=== PATIENT | male | born 1970 | race Caucasian/White ===

== ENCOUNTER 2018-02-22 03:44 | Emergency (ER) | payer OTHER, SELFPAY ==
[2018-02-22 03:45] VITALS: BP 195/94; PULSE 100; RESP 22; TEMP 36.8; O2SAT 99; BMI 22.9
--- NOTE | 2018-02-22 03:48 | ED.ARRPALP ---
HPI - Arrhythmia/Palpitations General Chief Complaint: Arrhythmia/Palpitations Stated Complaint: Chest pain Time Seen by Provider: 02/22/18 03:48 Source: patient Mode of arrival: ambulatory Limitations: no limitations History of Present Illness HPI narrative: 47-year-old male here for evaluation of palpitations. He states that for the past several days/week he has had occasional episodes of chest palpitations. He denies any chest pain or lightheadedness during symptoms. He states that his grandfather and father both early because of heart attacks and he was concerned about this. This evening he woke up. Drinks several cups of coffee. He is watching TV. States that he felt like his heart was beating fast and skipping beats. 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 The time of my evaluation he reports a vast improvement all of his symptoms. Related Data Home Medications Medication Instructions Recorded Confirmed hydrocodone 10 mg-acetaminophen 1 tab PO .COMPLEX PRN 11/14/17 11/14/17 325 mg tablet morphine ER 30 mg capsule,extended 30 mg PO BID cap 11/14/17 11/14/17 release 24 hr multiphase Allergies Allergy/AdvReac Type Severity Reaction Status Date / Time No Known Drug Allergies Allergy Verified 11/14/17 09:25 Review of Systems Constitutional Denies fever(s) Cardiovascular Denies chest pain, Denies diaphoresis, Reports rapid heart rate, Denies lightheadedness, Reports palpitations and Denies dyspnea Respiratory Denies cough and Denies dyspnea Gastrointestinal Gastrointestinal: Denies abdominal pain Musculoskeletal Denies myalgias and Denies arthralgias Integumentary/Breasts Denies rash Endocrine Reports palpitations Hematologic/Lymphatic Comments: Not on anticoagulation [facility] Social History Smoking Status: Current every day smoker alcohol intake: never Exam Initial Vital Signs Initial Vital Signs: Vital Signs Temperature 98.2 F 02/22/18 03:45 Pulse Rate 100 H 02/22/18 03:45 Respiratory Rate 22 02/22/18 03:45 Blood Pressure 195/94 H 02/22/18 03:45 Pulse Oximetry 99 02/22/18 03:45 Const General: cooperative, comfortable, well developed, well groomed and No acute distress Orientation: alert, awake and oriented x3 HENMT Head: normal to inspection and normocephalic Chest Chest: normal inspection of the chest Resp Effort & Inspection: normal respiratory effort Auscultation: clear to auscultation bilaterally Cardio Rate: regular rate Rhythm: regular rhythm Pulses: radial pulses present GI Inspection: non-distended Palpation: soft and No firm Skin Lesions: no lesions Rashes: no rashes Neuro General: alert, awake and oriented x3 Cognition: normal cognition Speech: speech normal Gait: normal gait Extrem General: normal to inspection, full ROM and capillary refill normal Psych Appearance: grossly normal and well kempt Course Orders Ordered: ED Orders 02/22/18 EKG-12 Lead Stat 02/22/18 03:40 Basic Metabolic Panel Stat Complete Blood Count AUTO DIFF Stat Troponin I Stat 02/22/18 03:57 XR chest 1V Stat Vital Signs - 8 hr 02/22/18 03:45 02/22/18 04:21 02/22/18 04:46 Temperature 98.2 F Pulse Rate 100 H 76 72 Respiratory Rate 22 20 18 Blood Pressure 195/94 H Blood Pressure [Right Arm] 140/90 138/84 Pulse Oximetry 99 98 99 MDM - Arrhythmia/Palpitations Lab Data Attestation: I reviewed the patient's lab results. Result diagrams: 02/22/18 03:40 02/22/18 03:40 Lab Results 02/22/18 02/22/18 Range/Units 03:40 03:40 WBC 11.6 H (4.5-11.0) X10^3/uL RBC 4.41 L (4.5-5.9) X10^6/uL Hgb 15.1 (13.5-17.5) g/dL Hct 43.0 (41-53) % MCV 97.5 (80-100) fL MCH 34.2 H (26-34) PG MCHC 35.1 (30-36) % RDW 14.7 (11.6-14.8) % Plt Count 398 (150-400) X10^3/uL Neut % (Auto) 58.9 (50-75) % Lymph % (Auto) 29.8 (25-40) % [place] % (Auto) 8.7 (3-14) % Eos % (Auto) 1.6 L (2-4) % Baso % (Auto) 1.0 (0-2) % Neut # (Auto) 6800 H (6361-3611) /uL Sodium 140 (137-145) mmol/L Potassium 4.0 (3.4-5.1) mmol/L Chloride 103 (98-107) mmol/L Carbon Dioxide 26 (22-32) mmol/L BUN 8 L (9-20) mg/dL Creatinine 0.80 (0.66-1.25) mg/dL Estimated GFR > 60.0 (>60) mL/min BUN/Creatinine Ratio 10.0 (6-22) Glucose 121 H (70-100) mg/dL Calcium 9.0 (8.4-10.2) mg/dL Troponin I < 0.012 (0.01-0.034) ng/mL Imaging Data Chest x-ray: Attestation: I personally reviewed and interpreted this imaging study as follows: My impression: No focal consolidation Normal size heart No pneumothorax ECG Data Attestation: I personally reviewed and interpreted this ECG as follows: Prior ECG tracings: not available for review Interpretation: Sinus rhythm Ventricular rate is 79 Normal QRS Normal QTC Normal axis No ST T wave changes MDM Narrative Medical decision making narrative: Asymptomatic in the emergency department. His blood pressure did improve during his stay. EKG is unremarkable. Does not level prolonged QT. Labs unremarkable. Chest x-ray is unremarkable. Was sinus rhythm during his entire stay here in the ER on the monitor. We did discuss all this. He does not have any alarming factors to include chest pain or lightheadedness when his symptoms are occurring. I do suspect that his smoking and what seems to be excessive caffeine use could potentially be causing some of his symptoms. We did discuss the importance of quitting smoking. We did discuss that he should contact his primary doctor to discuss the indications for a referral to get a Holter monitor. We discussed return precautions. He expressed understanding and agreement plan Discharge Plan Departure Patient Disposition: Home Clinical Impression: Palpitations Instructions: DI for Palpitations Activity Restrictions/Additional Instructions: I do recommend you contact your primary doctor to discuss the indications for a Holter monitor. You can return to the emergency department any time for new or worsening symptoms and I encourage you to return if her symptoms ever occur with chest pain or lightheadedness or passing out. I do recommend that you cut back on the amount of caffeine that your drinking I also recommend that you consider quitting smoking. Prescriptions: No Action morphine 30 mg capsule, ER multiphase 24 hr 30 mg PO BID RF: 0 hydrocodone-acetaminophen 10-325 mg tablet 1 tab PO .COMPLEX PRNRF: 0
--- NOTE | 2018-02-22 03:57 | DI.RAD.S_ITS ---
PROCEDURE: XR CHEST 1V INDICATIONS: Palpitations TECHNIQUE: One view of the chest was acquired. COMPARISON: None. FINDINGS: Surgical changes and devices: None. Lungs and pleura: No pleural effusions or pneumothorax. Lungs are clear. Mediastinum: Mediastinal contours appear normal. Heart size is normal. Bones and chest wall: No suspicious bony lesions. Overlying soft tissues appear unremarkable. IMPRESSION: No acute disease. Dictated by: Gibson Snyder M.D. on 02/22/2018 at 8:11 Approved by: Gibson Snyder M.D. on 02/22/2018 at 8:11
[2018-02-22 04:04] LABS: Add Manual Diff / Slide Review NO; Eosinophils Percent Auto 1.6 % (2-4); Hemoglobin 15.1 g/dL (13.5-17.5); Lymphocytes Percent Auto 29.8 % (25-40); Mean Corpuscular HGB Conc 35.1 % (30-36); Mean Corpuscular Hemoglobin 34.2 PG (26-34); Mean Corpuscular Volume 97.5 fL (80-100); Monocytes Percent Auto 8.7 % (3-14); Neutrophils Absolute Auto 6800 /uL (3000-5900); Neutrophils Percent Auto 58.9 % (50-75); Platelet Count 398 X10^3/uL (150-400); Red Blood Cell Count 4.41 X10^6/uL (4.5-5.9); Red Cell Distribution Width 14.7 % (11.6-14.8); White Blood Cell Count 11.6 X10^3/uL (4.5-11.0)
[2018-02-22 04:11] LABS: Blood Urea Nitrogen 8 mg/dL (9-20); Carbon Dioxide 26 mmol/L (22-32); Chloride 103 mmol/L (98-107); Estimated Glomerular Filt Rate > 60.0 mL/min (>60); Glucose 121 mg/dL (70-100); HEMOLYSIS < 15 (0-50); Sodium 140 mmol/L (137-145)
[2018-02-22 04:21] VITALS: BP 140/90; PULSE 76; RESP 20; O2SAT 98
[2018-02-22 04:24] LABS: Troponin I < 0.012 ng/mL (0.01-0.034)
[2018-02-22 04:46] VITALS: BP 138/84; PULSE 72; RESP 18; O2SAT 99
== END 2018-02-22 05:13 | disposition home or self-care (01) ==
PROVIDERS: Emergency Provider Emergency Medicine; PCP Family Medicine
DX: R00.2 Palpitations (principal); R07.89 Other chest pain
CPT/HCPCS: 36415; 71045; 80048; 84484; 85025; 93005; 93010; 93041; 99283; 99285

== ENCOUNTER 2018-03-01 07:58 | Emergency (ER) | payer OTHER, SELFPAY ==
[2018-03-01 08:06] VITALS: BP 148/104; PULSE 107; RESP 18; TEMP 37.3; O2SAT 98; BMI 22.9
--- NOTE | 2018-03-01 08:09 | DI.RAD.S_ITS ---
PROCEDURE: XR CHEST 1V INDICATIONS: chest pain TECHNIQUE: One view of the chest was acquired. COMPARISON: [facility], CR, XR CHEST 1V, 02/22/2018, 3:59. FINDINGS: Surgical changes and devices: None. Lungs and pleura: No pleural effusions or pneumothorax. Lungs are clear. Mediastinum: Mediastinal contours appear normal. Heart size is normal. Bones and chest wall: No suspicious bony lesions. Overlying soft tissues appear unremarkable. IMPRESSION: No acute pulmonary process. Dictated by: Kasandra Tobias M.D. on 03/01/2018 at 9:10 Approved by: Kasandra Tobias M.D. on 03/01/2018 at 9:32
--- NOTE | 2018-03-01 08:09 | ED_ITS ---
HPI - Chest Pain General Chief Complaint: Chest Pain Stated Complaint: heart issues Time Seen by Provider: 03/01/18 08:05 Source: patient and family Mode of arrival: ambulatory Limitations: no limitations History of Present Illness HPI narrative: This is a 47-year-old male comes to the emergency department with complaint of palpitations and jolt like pain intermittently with palpitations. Patient states this has been going on for almost 3 weeks he was seen here on February 22 and had a cardiac evaluation that was negative in the emergency department and discharged home. Patient states it feels like his heart is pounding out of his chest. It has been pretty much constant but sort of waxes and wanes in intensity. At his ER visit he was told he had elevated blood pressure and was referred to his primary care. They start him on hydrochlorothiazide 5 days ago. Patient states he used to be on blood pressure medications but ran out about a 6 months to a year ago and he never restarted it or contacted his physicians for refill. Patient states that he also decrease his caffeine intake he was drinking about a pot of coffee daily and now is drinking half decaf, half caffeinated which he states is probably about 2 cups total of caffeinated coffee. He states today he had some chest pain at 6 :30 a.m. which Um was while he was working. 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 He normally works for to 10:00 a.m.. Patient states it felt like a jolt, Um it is not really present right now. When asked if he is having any tightness or pressure he denies it. Patient states he does feel short of breath but does not seem like it is worse with exertion. He has felt slightly nauseated yesterday and today he has felt lightheaded but has not had any syncope. He has felt clammy or sweaty. He does smoke a pack per day tobacco, he has occasional alcohol and denies any illicit. He did travel to [place] in January but states that the palpitations and feeling started before his trip to [place]. His father did at the age of 59 from cardiac causes as well as his grandfather at 49. He denies any prior history of dyslipidemia. Patient has had an appendectomy, L5-S1 laminectomy and fusion with resulting sciatica. Related Data Home Medications Medication Instructions Recorded Confirmed hydrocodone 10 mg-acetaminophen 1 tab PO .COMPLEX PRN 11/14/17 03/01/18 325 mg tablet morphine ER 30 mg capsule,extended 30 mg PO BID cap 11/14/17 03/01/18 release 24 hr multiphase Previous Rx's Medication Instructions Recorded hydrochlorothiazide 25 mg tablet 25 mg PO DAILY #30 tab 02/23/18 Allergies Allergy/AdvReac Type Severity Reaction Status Date / Time No Known Drug Allergies Allergy Verified 03/01/18 08:06 Review of Systems Review of Systems All systems reviewed & are unremarkable except as noted in HPI and below Constitutional Denies excessive sweating, Denies fever(s) and Denies weakness Cardiovascular Reports chest pain, Reports diaphoresis, Denies syncope, Denies edema, Denies irregular heart rhythm, Reports lightheadedness, Reports palpitations, Reports dyspnea, Denies dyspnea on exertion and Denies orthopnea Respiratory Denies chest congestion, Denies excessive phlegm production, Reports dyspnea and Denies dyspnea on exertion Gastrointestinal Gastrointestinal: Denies abdominal pain, Denies change in bowel habits, Denies diarrhea, Reports nausea and Denies vomiting Neurologic Denies syncope and Denies weakness Endocrine Denies excessive sweating and Reports palpitations PFSH Medical History Hypertension (Acute) Lumbar strain (Chronic ~2011) Surgical History History of back surgery (Resolved 11/2011) Family History Father Coronary artery disease involving [place] coronary artery of [place] heart with unstable angina pectoris Social History Smoking Status: Current every day smoker alcohol intake: current substance use type: marijuana Exam Narrative Exam Narrative: GENERAL: Alert and oriented x three, well-nourished, well- appearing male in mild distress. Patient appears anxious. HEENT: Head normocephalic, atraumatic, EOMI, pupils reactive, face symmetric, moist mucous membranes NECK: Supple, full range of motion CARDIOVASCULAR: Regular rate and rhythm without murmurs, rubs or gallops. No JVD. No edema bilateral lower extremities. RESPIRATORY: Breath sounds equal bilaterally, no wheezes rales or rhonchi. No tachypnea, no accessory movement. ABDOMEN: Soft, nontender. Normoactive bowel sounds all 4 quadrants. No guarding or rebound, rigidity, no mass : No CVA tenderness EXTREMITIES: Normal range of motion, no clubbing or edema. Neurovascularly intact NEUROLOGICAL: Cranial nerves II through XII grossly intact. Moving all extremities SKIN: Warm, dry, no petechiae, no rashes or lesions. Initial Vital Signs Initial Vital Signs: Vital Signs Temperature 99.1 F 03/01/18 08:06 Pulse Rate 107 H 03/01/18 08:06 Respiratory Rate 18 03/01/18 08:06 Blood Pressure 148/104 H 03/01/18 08:06 Pulse Oximetry 98 03/01/18 08:06 Course Orders Ordered: ED Orders 03/01/18 11:22 EKG-12 Lead Stat 03/01/18 11:35 Electrolytes Stat Troponin I Stat Discontinued Medications Aspirin (Aspirin Chew) 324 mg PO NOW ONE Stop: 03/01/18 08:10 Last Admin: 03/01/18 08:22 Dose: 324 mg Sodium Chloride (Normal Saline 0.9%) 1,000 mls @ 150 mls/hr IV CONT MARÍA Last Infusion: 03/01/18 08:37 Dose: 1,000 mls/hr Admin: 03/01/18 08:21 Dose: 150 mls/hr Sodium Chloride (Normal Saline 0.9%) 1,000 mls @ 1,000 mls/hr IV BOLUS ONE Stop: 03/01/18 09:27 Last Admin: 03/01/18 08:37 Dose: Potassium Chloride 40 meq/ (Sodium Chloride) 520 mls @ 130 mls/hr IV NOW ONE Stop: 03/01/18 13:19 Potassium Chloride (Potassium Chloride) 40 meq PO NOW ONE Stop: 03/01/18 09:22 Last Admin: 03/01/18 10:06 Dose: 40 meq Vital Signs - 8 hr 03/01/18 08:06 03/01/18 08:23 03/01/18 09:00 Temperature 99.1 F Pulse Rate 107 H 107 H 82 Respiratory Rate 18 18 Blood Pressure 148/104 H Blood Pressure [Left Arm] 148/107 H 146/92 H Pulse Oximetry 98 98 99 MDM - Chest Pain Lab Data Result diagrams: 03/01/18 08:10 03/01/18 11:35 Lab Results 03/01/18 03/01/18 03/01/18 Range/Units 08:10 08:10 08:10 WBC 13.2 H (4.5-11.0) X10^3/uL RBC 4.29 L (4.5-5.9) X10^6/uL Hgb 14.5 (13.5-17.5) g/dL Hct 42.2 (41-53) % MCV 98.3 (80-100) fL MCH 33.8 (26-34) PG MCHC 34.4 (30-36) % RDW 14.1 (11.6-14.8) % Plt Count 329 (150-400) X10^3/uL Neut % (Auto) 58.0 (50-75) % Lymph % (Auto) 30.8 (25-40) % [place] % (Auto) 9.5 (3-14) % Eos % (Auto) 0.9 L (2-4) % Baso % (Auto) 0.8 (0-2) % Neut # (Auto) 7700 H (5572-4427) /uL PT 11.0 (10.1-12.7) SECONDS INR 1.0 (0.9-1.3) APTT 33 (26.4-36.2) SECONDS D-Dimer (<230) ng/mL Sodium 136 L (137-145) mmol/L Potassium 2.9 L (3.4-5.1) mmol/L Chloride 95 L (98-107) mmol/L Carbon Dioxide 27 (22-32) mmol/L BUN 13 (9-20) mg/dL Creatinine 0.80 (0.66-1.25) mg/dL Estimated GFR > 60.0 (>60) mL/min BUN/Creatinine Ratio 16.3 (6-22) Glucose 143 H (70-100) mg/dL Calcium 8.7 (8.4-10.2) mg/dL Total Bilirubin 0.5 (0.2-1.3) mg/dL AST 22 (17-59) IU/L ALT 33 (21-72) IU/L Alkaline Phosphatase 73 (38-126) U/L Total Creatine Kinase 137 (55-170) U/L CK-MB (CK-2) 0.90 (<2.37) ng/mL CK-MB (CK-2) Rel Index 0.7 L (1.5-5.0) % Troponin I < 0.012 (0.01-0.034) ng/mL Total Protein 7.5 (6.3-8.2) g/dL Albumin 4.5 (3.5-5.0) g/dL Globulin 3.0 (1.7-4.1) g/dL Albumin/Globulin Ratio 1.5 (1.0-2.8) Lipase 23 (23-300) U/L TSH (0.47-4.68) uIU/mL Urine Opiates Screen (Negative) Ur Oxycodone Screen (Negative) Urine Methadone Screen (Negative) Ur Barbiturates Screen (Negative) U Tricyclic Antidepress (Negative) Ur Phencyclidine Scrn (Negative) Ur Amphetamines Screen (Negative) U Methamphetamines Scrn (Negative) Ur MDMA Scrn (Ecstasy) (Negative) U Benzodiazepines Scrn (Negative) Urine Cocaine Screen (Negative) U Marijuana (THC) Screen (Negative) 03/01/18 03/01/18 03/01/18 Range/Units 08:10 08:10 08:54 WBC (4.5-11.0) X10^3/uL RBC (4.5-5.9) X10^6/uL Hgb (13.5-17.5) g/dL Hct (41-53) % MCV (80-100) fL MCH (26-34) PG MCHC (30-36) % RDW (11.6-14.8) % Plt Count (150-400) X10^3/uL Neut % (Auto) (50-75) % Lymph % (Auto) (25-40) % [place] % (Auto) (3-14) % Eos % (Auto) (2-4) % Baso % (Auto) (0-2) % Neut # (Auto) (7270-6916) /uL PT (10.1-12.7) SECONDS INR (0.9-1.3) APTT (26.4-36.2) SECONDS D-Dimer < 200 (<230) ng/mL Sodium (137-145) mmol/L Potassium (3.4-5.1) mmol/L Chloride (98-107) mmol/L Carbon Dioxide (22-32) mmol/L BUN (9-20) mg/dL Creatinine (0.66-1.25) mg/dL Estimated GFR (>60) mL/min BUN/Creatinine Ratio (6-22) Glucose (70-100) mg/dL Calcium (8.4-10.2) mg/dL Total Bilirubin (0.2-1.3) mg/dL AST (17-59) IU/L ALT (21-72) IU/L Alkaline Phosphatase (38-126) U/L Total Creatine Kinase (55-170) U/L CK-MB (CK-2) (<2.37) ng/mL CK-MB (CK-2) Rel Index (1.5-5.0) % Troponin I (0.01-0.034) ng/mL Total Protein (6.3-8.2) g/dL Albumin (3.5-5.0) g/dL Globulin (1.7-4.1) g/dL Albumin/Globulin Ratio (1.0-2.8) Lipase (23-300) U/L TSH 1.97 (0.47-4.68) uIU/mL Urine Opiates Screen Positive H (Negative) Ur Oxycodone Screen Negative (Negative) Urine Methadone Screen Negative (Negative) Ur Barbiturates Screen Negative (Negative) U Tricyclic Antidepress Negative (Negative) Ur Phencyclidine Scrn Negative (Negative) Ur Amphetamines Screen Negative (Negative) U Methamphetamines Scrn Negative (Negative) Ur MDMA Scrn (Ecstasy) Negative (Negative) U Benzodiazepines Scrn Negative (Negative) Urine Cocaine Screen Negative (Negative) U Marijuana (THC) Screen Positive H (Negative) 03/01/18 Range/Units 11:35 WBC (4.5-11.0) X10^3/uL RBC (4.5-5.9) X10^6/uL Hgb (13.5-17.5) g/dL Hct (41-53) % MCV (80-100) fL MCH (26-34) PG MCHC (30-36) % RDW (11.6-14.8) % Plt Count (150-400) X10^3/uL Neut % (Auto) (50-75) % Lymph % (Auto) (25-40) % [place] % (Auto) (3-14) % Eos % (Auto) (2-4) % Baso % (Auto) (0-2) % Neut # (Auto) (1892-3644) /uL PT (10.1-12.7) SECONDS INR (0.9-1.3) APTT (26.4-36.2) SECONDS D-Dimer (<230) ng/mL Sodium 140 (137-145) mmol/L Potassium 3.4 (3.4-5.1) mmol/L Chloride 98 (98-107) mmol/L Carbon Dioxide 29 (22-32) mmol/L BUN (9-20) mg/dL Creatinine (0.66-1.25) mg/dL Estimated GFR (>60) mL/min BUN/Creatinine Ratio (6-22) Glucose (70-100) mg/dL Calcium (8.4-10.2) mg/dL Total Bilirubin (0.2-1.3) mg/dL AST (17-59) IU/L ALT (21-72) IU/L Alkaline Phosphatase (38-126) U/L Total Creatine Kinase (55-170) U/L CK-MB (CK-2) (<2.37) ng/mL CK-MB (CK-2) Rel Index (1.5-5.0) % Troponin I < 0.012 (0.01-0.034) ng/mL Total Protein (6.3-8.2) g/dL Albumin (3.5-5.0) g/dL Globulin (1.7-4.1) g/dL Albumin/Globulin Ratio (1.0-2.8) Lipase (23-300) U/L TSH (0.47-4.68) uIU/mL Urine Opiates Screen (Negative) Ur Oxycodone Screen (Negative) Urine Methadone Screen (Negative) Ur Barbiturates Screen (Negative) U Tricyclic Antidepress (Negative) Ur Phencyclidine Scrn (Negative) Ur Amphetamines Screen (Negative) U Methamphetamines Scrn (Negative) Ur MDMA Scrn (Ecstasy) (Negative) U Benzodiazepines Scrn (Negative) Urine Cocaine Screen (Negative) U Marijuana (THC) Screen (Negative) Imaging Data Chest x-ray: Attestation: I personally reviewed and interpreted this imaging study as follows: My impression: nap, no infiltrate, no mass, normal alignment, ECG Data Attestation: I personally reviewed and interpreted this ECG as follows: Prior ECG tracings: available for review Interpretation: Sinus rhythm nonspecific change. Ventricular rate of 94, P are interval of 129, QRS of 90 and QTC of 418. MDM Narrative Medical decision making narrative: Patient comes in with complaint of palpitations that have been going on for almost a month. Patient's lab work shows a low potassium. This is likely secondary to being started on hydrochlorothiazide which happened about 5 days ago. This would exacerbate his symptoms and possibly make him feel much worse. Potassium replaced p.o. and started IV here in the emergency department. Patient did come in was slightly elevated heart rate. He has a significant family history, smokes tobacco and was untreated with his blood pressure for 6-12 months. He has also been having some new chest pain. Patient had repeat EKG which appears similar to prior. Patient's repeat lytes and troponin are both in the normal range. Patient had left [facility] prior to the resulting of his lab work he left before I was able to talk to him. I did call him, we discussed that he needs follow-up. That his potassiums probably decreased from the hydrochlorothiazide so he should probably not take this medication he does not have a prescription for potassium. We also discussed that he probably needs stress testing for evaluation of his palpitations and occasional chest pain. Patient was adamant that he did want to spend the night in the hospital before he left. I spoke with his primary care team and they will have patient follow-up, they will help with his blood pressure medications and stress testing. They are aware that he is planning to call tomorrow morning to make sure that he has his medications cleared away and that he has an appointment set up for the beginning of March. Discharge Plan Departure Patient Disposition: Left Against Medical Advice Clinical Impression: Palpitations, Acute hypokalemia, Left against medical advice Discharge Date/Time: 03/01/18 13:00 Interventions: ED Discharge Assessment Last Done: 03/01/18 13:28 Prescriptions: No Action morphine 30 mg capsule, ER multiphase 24 hr 30 mg PO BID RF: 0 hydrocodone-acetaminophen 10-325 mg tablet 1 tab PO .COMPLEX PRN (Reason: Back Pain) RF: 0 hydrochlorothiazide 25 mg tablet 25 mg PO DAILY Qty: 30 RF: 0 Referrals: Alis Ortega DO [Primary Care Provider] - Stand Alone Forms: Against Medical Advice
[2018-03-01 08:19] LABS: Add Manual Diff / Slide Review NO; Basophils Percent Auto 0.8 % (0-2); Eosinophils Percent Auto 0.9 % (2-4); Hematocrit 42.2 % (41-53); Hemoglobin 14.5 g/dL (13.5-17.5); Lymphocytes Percent Auto 30.8 % (25-40); Mean Corpuscular HGB Conc 34.4 % (30-36); Mean Corpuscular Hemoglobin 33.8 PG (26-34); Mean Corpuscular Volume 98.3 fL (80-100); Monocytes Percent Auto 9.5 % (3-14); Neutrophils Absolute Auto 7700 /uL (1500-7000); Platelet Count 329 X10^3/uL (150-400); Red Blood Cell Count 4.29 X10^6/uL (4.5-5.9); Red Cell Distribution Width 14.1 % (11.6-14.8); White Blood Cell Count 13.2 X10^3/uL (4.5-11.0)
--- NOTE | 2018-03-01 08:20 | PC.NURSE ---
report, pounding irregular heart rate, like my heart restarted, while at work, now with left chest tightness, shortness of breath, irregular heart rate sxs for 3 weeks, seen and evaluated last week, follow up with primary not till march 16. pt new rx for hypertension, 25mg hydrochlorothiazide 25mg daily, now bp 148/107, denies fever,vomiting or coughing. pt denies long distance traveling or hx of blood clots. dr singleton at [facility].
[2018-03-01] MEDS: SODIUM CHLORIDE 0.9% 1,000 ML 150 ML IV (08:21)
[2018-03-01] MEDS: ASPIRIN 81 MG TAB 324 MG PO (08:22)
[2018-03-01 08:23] VITALS: BP 148/107; PULSE 107; RESP 18; O2SAT 98
[2018-03-01 08:28] LABS: PTT Partial Thromboplastin Tim 33 SECONDS (26.4-36.2)
[2018-03-01 08:29] LABS: Alanine Aminotransferase 33 IU/L (21-72); Albumin 4.5 g/dL (3.5-5.0); Albumin Globulin Ratio 1.5 (1.0-2.8); Alkaline Phosphatase 73 U/L (38-126); Aspartate Aminotransferase 22 IU/L (17-59); BUN Creatinine Ratio 16.3 (6-22); Bilirubin Total 0.5 mg/dL (0.2-1.3); Blood Urea Nitrogen 13 mg/dL (9-20); Calcium 8.7 mg/dL (8.4-10.2); Carbon Dioxide 27 mmol/L (22-32); Chloride 95 mmol/L (98-107); Creatine Kinase 137 U/L (55-170); Estimated Glomerular Filt Rate > 60.0 mL/min (>60); Glucose 143 mg/dL (70-100); HEMOLYSIS < 15 (0-50); Lipase 23 U/L (23-300); Potassium 2.9 mmol/L (3.4-5.1); Sodium 136 mmol/L (137-145); Total Protein 7.5 g/dL (6.3-8.2)
[2018-03-01 08:38] LABS: D Dimer < 200 ng/mL (<230)
[2018-03-01 08:42] LABS: Troponin I < 0.012 ng/mL (0.01-0.034)
[2018-03-01 08:44] LABS: CKMB % Relative Index 0.7 % (1.5-5.0)
[2018-03-01 09:00] VITALS: BP 146/92; PULSE 82; O2SAT 99
[2018-03-01 09:14] LABS: Thyroid Stimulating Hormone 1.97 uIU/mL (0.47-4.68)
[2018-03-01 09:21] LABS: Urine Amphetamines Negative (Negative); Urine Barbiturates Negative (Negative); Urine Benzodiazepines Negative (Negative); Urine Cocaine Negative (Negative); Urine MDMA Negative (Negative); Urine Methadone Negative (Negative); Urine Methamphetamines Negative (Negative); Urine Morphine/Opi cutoff 2000 Positive (Negative); Urine Oxycodone Negative (Negative); Urine Phencyclidine Negative (Negative); Urine THC Positive (Negative); Urine Tricyclic Antidepressant Negative (Negative)
[2018-03-01 09:30] VITALS: BP 143/86; PULSE 85; O2SAT 99
[2018-03-01 10:00] VITALS: BP 143/86; PULSE 80; O2SAT 99
[2018-03-01] MEDS: POTASSIUM CHLORIDE 20 MEQ/15 ML UDC 40 MEQ PO (10:06)
--- NOTE | 2018-03-01 11:40 | PC.NURSE ---
pt signed AMA at 1140. pt did allow me to take 2nd lab draw.
[2018-03-01 12:07] LABS: Carbon Dioxide 29 mmol/L (22-32); Chloride 98 mmol/L (98-107); HEMOLYSIS < 15 (0-50); Potassium 3.4 mmol/L (3.4-5.1); Sodium 140 mmol/L (137-145)
[2018-03-01 12:25] LABS: Troponin I < 0.012 ng/mL (0.01-0.034)
== END 2018-03-01 13:00 | disposition left against medical advice (07) ==
PROVIDERS: Emergency Provider Emergency Medicine; PCP Family Medicine
DX: R00.2 Palpitations (principal); E87.6 Hypokalemia
CPT/HCPCS: 36415; 36591; 71045; 80051; 80053; 80305; 82550; 82553; 83690; 84443; 84484; 85025; 85379; 85610; 85730; 93005; 99284; 99285

== ENCOUNTER → 2018-03-22 09:23 | Outpatient (CLI) | payer OTHER, SELFPAY ==
--- NOTE | 2018-04-06 08:21 | PM.CARDMON.1 ---
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 Referral & Results Date Patient Seen: 03/22/18 Requesting provider: Alis Ortega Duration of monitoring (days): 7 Diary information: No diary entries or patient triggered events were present Data: Minimum heart rate identified was 59 beats per minute at 00:36 on 03/24/2018 Maximum heart rate was 176 beats per minute at 00:05 on 03/25/2018 Less than 1% of identified beats were either supraventricular or ventricular ectopic in origin The computer identified to runs of SVT which I believe to be not actually SVT but artifact There is also 9 sec of ventricular trigeminy present Impression: 7 day cardiac rehabilitation program director showing no serious dysrhythmia Occasional to rare PACs and PVCs identified as above Clinical correlation suggested
== END ==
PROVIDERS: PCP Family Medicine; Visit Provider Family Medicine
DX: R00.2 Palpitations (principal)
CPT/HCPCS: 0296T; 0298T

== ENCOUNTER → 2018-05-08 12:15 | Outpatient (CLI) | payer OTHER, SELFPAY ==
[2018-05-08 13:02] LABS: Add Manual Diff / Slide Review NO; Basophils Absolute Auto 100 /uL (0-100); Basophils Percent Auto 1.4 % (0-2); Eosinophils Absolute Auto 200 /uL (0-450); Eosinophils Percent Auto 1.6 % (2-4); Hematocrit 41.7 % (41-53); Hemoglobin 14.9 g/dL (13.5-17.5); Lymphocytes Absolute Auto 4200 /uL (1100-4500); Lymphocytes Percent Auto 42.1 % (25-40); Mean Corpuscular HGB Conc 35.7 % (30-36); Mean Corpuscular Hemoglobin 34.9 PG (26-34); Monocytes Absolute Auto 800 /uL (0-900); Monocytes Percent Auto 8.4 % (3-14); Neutrophils Absolute Auto 4600 /uL (1500-7000); Neutrophils Percent Auto 46.5 % (50-75); Platelet Count 305 X10^3/uL (150-400); Red Blood Cell Count 4.26 X10^6/uL (4.5-5.9); White Blood Cell Count 9.9 X10^3/uL (4.5-11.0)
[2018-05-08 13:13] LABS: Alanine Aminotransferase 41 IU/L (21-72); Albumin 4.7 g/dL (3.5-5.0); Albumin Globulin Ratio 1.6 (1.0-2.8); Alkaline Phosphatase 64 U/L (38-126); Aspartate Aminotransferase 33 IU/L (17-59); BUN Creatinine Ratio 13.3 (6-22); Bilirubin Total 0.4 mg/dL (0.2-1.3); Blood Urea Nitrogen 12 mg/dL (9-20); Calcium 9.1 mg/dL (8.4-10.2); Carbon Dioxide 26 mmol/L (22-32); Chloride 102 mmol/L (98-107); Cholesterol 209 mg/dL (140-199); Estimated Glomerular Filt Rate > 60.0 mL/min (>60); Glucose 100 mg/dL (70-100); HDL Cholesterol 72 mg/dL (40-60); HEMOLYSIS 16 (0-50); LDL Cholesterol Calculated 115 mg/dL (<100); Potassium 3.9 mmol/L (3.4-5.1); Sodium 137 mmol/L (137-145); Total Protein 7.7 g/dL (6.3-8.2); Triglycerides 112 mg/dL (35-150)
== END ==
PROVIDERS: Family Provider Family Medicine; PCP Family Medicine; Visit Provider Internal Medicine Cardiovascular Disease
DX: I10 Essential (primary) hypertension (principal); M54.16 Radiculopathy, lumbar region; F17.200 Nicotine dependence, unspecified, uncomplicated; S29.019A Strain of muscle and tendon of unspecified wall of thorax, initial encounter; Z51.81 Encounter for therapeutic drug level monitoring; Z13.29 Encounter for screening for other suspected endocrine disorder; Z12.5 Encounter for screening for malignant neoplasm of prostate
CPT/HCPCS: 36415; 80053; 80061; 84443; 85025; G0103

== ENCOUNTER → 2019-10-29 07:54 | Outpatient (CLI) | payer OTHER, SELFPAY ==
--- NOTE | 2019-10-29 07:56 | DI.RAD.S_ITS ---
PROCEDURE: XR LUMBAR SPINE MIN 4V INDICATIONS: Progressive lower back pain TECHNIQUE: 5 views of the lumbar spine were acquired. COMPARISON: [facility], , L-SPINE 2-3 VIEWS, 11/29/2011, 15:48. FINDINGS: Bones: No fracture. Postsurgical changes related to paraspinal kristina and screw fixation at L5-S1 on the right. Interbody cage graft also present at L5-S1. Expected postoperative alignment. Hardware appears intact. Multilevel degenerative endplate sclerosis and spurring. Diffuse facet arthropathy. Diffuse mild to moderate narrowing of the remaining lumbar disc spaces. Trace retrolisthesis of L2 on L3. Soft tissues: Overlying bowel gas pattern is normal. No suspicious soft tissue calcifications. Oblique images: No pars defects. IMPRESSION: Postsurgical and degenerative changes as above. Expected postoperative alignment at L5-S1. Dictated by: Gibson Snyder M.D. on 10/29/2019 at 9:11 Approved by: Gibson Snyder M.D. on 10/29/2019 at 9:13
== END ==
PROVIDERS: Family Provider Family Medicine; PCP Family Medicine; Referring Provider Family Medicine; Visit Provider Family Medicine
DX: M54.5 Low back pain (principal); M47.816 Spondylosis without myelopathy or radiculopathy, lumbar region; Z98.890 Other specified postprocedural states
CPT/HCPCS: 72110

== ENCOUNTER → 2020-09-01 08:28 | Outpatient (CLI) | payer OTHER, SELFPAY ==
--- NOTE | 2020-09-01 08:29 | DI.RAD.S_ITS ---
PROCEDURE: XR LUMBAR SPINE 2-3V INDICATIONS: Progressive lower back pain TECHNIQUE: 3 views of the lumbar spine were acquired. COMPARISON: [facility], , XR LUMBAR SPINE MIN 4V, 10/29/2019, 6:53. FINDINGS: Bones: 5 [id number] vertebrae are present. There is posterior fusion at L5-S1 with intervertebral spacer. Hardware is intact without evidence of hardware fracture or periprosthetic lucency. There is trace retrolisthesis throughout the lumbar spine, unchanged. Severe foraminal narrowing remains present at L5-S1. No vertebral body compression fractures. No suspicious bony lesions. Soft tissues: Overlying bowel gas pattern is normal. No suspicious soft tissue calcifications. IMPRESSION: Stable appearance of postsurgical and degenerative changes. Dictated by: Kasandra Tobias M.D. on 09/01/2020 at 10:24 Approved by: Kasandra Tobias M.D. on 09/01/2020 at 10:25
== END ==
LOC: RAD 08:29
PROVIDERS: Family Provider Family Medicine; PCP Family Medicine; Referring Provider Family Medicine; Visit Provider Family Medicine
DX: M54.16 Radiculopathy, lumbar region (principal); M48.07 Spinal stenosis, lumbosacral region; Z98.1 Arthrodesis status
CPT/HCPCS: 72100

== ENCOUNTER → 2023-05-01 07:14 | Outpatient (CLI) | payer SELFPAY ==
[2023-05-01 08:15] LABS: Add Manual Diff / Slide Review NO; Basophils Absolute Auto 100 /uL (0-100); Basophils Percent Auto 0.4 % (0-2); Eosinophils Absolute Auto 100 /uL (0-450); Eosinophils Percent Auto 0.9 % (2-4); Hematocrit 45.8 % (41-53); Hemoglobin 16.1 g/dL (13.5-17.5); Lymphocytes Absolute Auto 3200 /uL (1100-4500); Lymphocytes Percent Auto 22.4 % (25-40); Mean Corpuscular HGB Conc 35.2 % (30-36); Mean Corpuscular Hemoglobin 35.7 PG (26-34); Mean Corpuscular Volume 101.4 fL (80-100); Monocytes Absolute Auto 1500 /uL (0-900); Monocytes Percent Auto 10.9 % (3-14); Neutrophils Absolute Auto 9200 /uL (1500-7000); Neutrophils Percent Auto 65.4 % (50-75); Platelet Count 315 X10^3/uL (150-400); Red Blood Cell Count 4.52 X10^6/uL (4.5-5.9); Red Cell Distribution Width 12.9 % (11.6-14.8); White Blood Cell Count 14.1 X10^3/uL (4.5-11.0)
[2023-05-01 08:22] LABS: Alanine Aminotransferase 50 IU/L (<50); Albumin 4.7 g/dL (3.5-5.0); Albumin Globulin Ratio 1.4 (1.0-2.8); Alkaline Phosphatase 78 U/L (38-126); Aspartate Aminotransferase 50 IU/L (17-59); BUN Creatinine Ratio 16.5 (6-22); Bilirubin Total 0.7 mg/dL (0.2-1.3); Blood Urea Nitrogen 13 mg/dL (9-20); Calcium 9.9 mg/dL (8.4-10.2); Carbon Dioxide 25 mmol/L (22-32); Chloride 103 mmol/L (98-107); Cholesterol 311 mg/dL (140-199); Estimated Glomerular Filt Rate > 60 mL/min (>60); Globulin 3.4 g/dL (1.7-4.1); Glucose 143 mg/dL (70-100); HDL Cholesterol 83 mg/dL (40-60); HEMOLYSIS < 15 (0-50); LDL Cholesterol Calculated 184 mg/dL (<100); Potassium 4.7 mmol/L (3.4-5.1); Sodium 140 mmol/L (137-145); Total Protein 8.1 g/dL (6.3-8.2); Triglycerides 220 mg/dL (35-150)
[2023-05-01 08:49] LABS: Prostate Specific Antigen 0.837 ng/mL (0.10-4.00)
== END ==
PROVIDERS: Family Provider Family Medicine; PCP Family Medicine; Referring Provider Family Medicine; Visit Provider Family Medicine
DX: Z12.5 Encounter for screening for malignant neoplasm of prostate (principal); I10 Essential (primary) hypertension
CPT/HCPCS: 36415; 80053; 80061; 84153; 85025